=== PATIENT | male | born 2000 | race Caucasian/White ===

== ENCOUNTER 2021-10-20 13:52 | Emergency (ER) | payer BC, SELFPAY ==
[2021-10-20] VITALS (8 sets, daily range): BP systolic 111–127; BP diastolic 72–94; PULSE 101–113; RESP 10–18; TEMP 36.9; O2SAT 94–100
--- NOTE | ~2021-10-20 | XR_ITS ---
EXAMINATION: XR chest 1V portable INDICATION: Shortness of breath and wheezing TECHNIQUE: Portable AP chest at 1554 hours COMPARISON: None available FINDINGS: The lungs are free of acute opacities. There is no pleural effusion or pneumothorax. The ca rdiomediastinal silhouette is normal. Healed right-sided rib fractures are noted. IMPRESSION: 1. No acute cardiopulmonary abnormality. Reviewed, dictated and finalized at location [facility]. [employer]
--- NOTE | 2021-10-20 15:45 | ECG_ITS ---
Measurements Intervals [place] Rate: 116 P: 81 AK: 113 QRS: 91 QRSD: 82 T: 54 QT: 322 QTc: 448 Interpretive Statements SINUS TACHYCARDIA WITH SHORT AK INTERVAL RIGHT AXIS DEVIATION BORDERLINE ST-T WAVE ABNORMALITY- INFERIOR LEADS BASELINE ARTIFACT- I, II, III, AVR, AVL, AVF, V1-V6 ABNORMAL ECG Electronically Signed On 10-20-2021 17:07:51 [employer] by Jim Marr D.O.
[2021-10-20] MEDS: ALBUTEROL SULFATE NEB 2.5 MG/0.5 ML INH 5 MG INHALATION ×2 (16:00→19:50)
[2021-10-20] MEDS: IPRATROPIUM BR 0.02% INH SOLN 0.5 MG/2.5 ML VIAL INHALATION ×2 (16:00→19:50)
--- NOTE | 2021-10-20 16:00 | ED.GENADULT ---
HPI - General Adult General Chief complaint: Anxiety Stated complaint: anxiety Time Seen by Provider: 10/20/21 15:08 Source: patient, family (father) and RN notes reviewed Mode of arrival: ambulatory Limitations: no limitations History of Present Illness HPI narrative: This is a 20 year old male with history of anxiety and reactive airway disease who presents for evaluation of panic attacks and wheezing. Patient reports he has severe anxiety and he is on multiple medications. Over the past 48 hours, he states he is having panic attacks, and afterwards he is wheezing and short of breath. He reports his wheezing has not resolved. He reports having episodes like this before and he had to go to hospital for breathing treatments. He has mild dry cough. He denies chest pain, nausea, vomiting, fever, runny nose or congestion. He also denies sick contacts. He has been using his albuterol inhaler without relief of his symptoms. His father also notices that patient is feeling fatigue even though he has been sleeping alot over past 48 hours. Related Data Allergies Allergy/AdvReac Type Severity Reaction Status Date / Time amoxicillin Allergy Swelling Verified 10/20/21 15:27 of Lip/Tongue/Throat Review of Systems Review of Systems: All systems reviewed & are unremarkable except as noted in HPI and below PMFSH Past Medical History Medical History (Updated 10/20/21 @ 20:33 by Maryann Cottrell MD) Anxiety Reactive airway disease Surgical History Surgical History (Updated 10/20/21 @ 16:08 by Maryann Cottrell MD) No pertinent past surgical history Social History Social History (Updated 10/20/21 @ 16:09 by Maryann Cottrell MD) Smoking status: Never smoker Alcohol intake: never Substance use: never Substance use type: does not use Exam Const: General: no acute distress and alert Nutritional Appearance: thin Orientation/consciousness: patient oriented x3 Eyes: Pupils: Equal, round and reactive pupils present EOM: EOMs intact bilaterally Chest: Chest palpation & inspection: normal inspection of the chest Resp: Effort & Inspection: normal respiratory effort, no retractions and not tachypneic Auscultation: wheezes expiratory wheezes and throughout Other: able to speak in complete sentences Cardio: Rate: tachycardic Rhythm: regular rhythm Heart sounds: no murmurs GI: GI Palp: Yes Soft to palpation, No Tenderness to palpation present (GI) and No Guarding due to palpation present (GI) Auscultation: normal bowel sounds Back/Spine/Pelvis: Back: no CVA tenderness Skin: General skin exam: normal color Rashes: no rashes Neuro: General: patient oriented x3, moves all extremities and CN's II-XI intact bilaterally Course Reevaluation(s) Reevaluation #1: Patient presented with wheezing. He asked for nebulizer. He is having wheezing but he denies shortness of breath and he is able to talk in complete sentences. I ambulated patient down hallway and he was able to walk without shortness of breath and maintain oxygen saturation 94% on room air. I offered observation for patient over night. He states he is comfortable with discharge and will return immediately if he worsens. His father is at bedside. I Discussed discharge medication as plan. Date: 10/20/21 Time: 20:29 Vital Signs Vital signs: Vital Signs Temperature 98.4 F 10/20/21 13:59 Pulse Rate 113 H 10/20/21 13:59 Respiratory Rate 18 10/20/21 13:59 Blood Pressure 116/88 10/20/21 13:59 Pulse Oximetry 96 10/20/21 13:59 Temperature 98.4 F 10/20/21 13:59 Pulse Rate 113 H 10/20/21 21:33 Respiratory Rate 16 10/20/21 21:33 Blood Pressure 111/72 10/20/21 21:33 Pulse Oximetry 97 10/20/21 21:33 Medical Decision Making Vital Signs Vital Signs: Vital Signs Temperature 98.4 F 10/20/21 13:59 Pulse Rate 113 H 10/20/21 13:59 Respiratory Rate 18 10/20/21 13:59 Blood Pressure 116/88 10/20/21
[2021-10-20] MEDS: predniSONE 20 MG TABLET 40 MG PO (16:35)
[2021-10-20] MEDS: SODIUM CHLORIDE 0.9% IV 1,000 ML 999 ML IV CONT (16:36)
[2021-10-20 16:42] LABS: Basophils Absolute Auto 0.1 K/mm3 (0.0-0.1); Basophils Percent Auto 0.9 % (0.2-1.2); Eosinophils Absolute Auto 0.5 K/mm3 (0-0.3); Eosinophils Percent Auto 5.7 % (0-4.4); Hematocrit 49.5 % (42.0-52.0); Hemoglobin 16.4 g/dL (14.0-18.0); Immature Granulocyte Absolute 0.02 K/mm3 (0.00-0.031); Immature Granulocyte Percent A 0.2 % (0-0.5); Lymphocytes Absolute Auto 2.16 K/mm3 (0.9-3.2); Lymphocytes Percent Auto 23.9 % (18.3-44.2); Mean Corpuscular HGB Conc 33.1 g/dl (32-36); Mean Corpuscular Hemoglobin 29.2 pg (26-34); Mean Corpuscular Volume 88.2 fl (80-100); Mean Platelet Volume 10.4 fl (7.4-10.4); Monocytes Absolute Auto 1.1 K/mm3 (0.1-0.6); Monocytes Percent Auto 12.6 % (2.6-8.5); Neutrophils Absolute Auto 5.1 K/mm3 (1.3-6.7); Neutrophils Percent Auto 56.7 % (45.5-73.1); Platelet Count Result 241 k/mm3 (150-375); Red Blood Count 5.61 M/mm3 (4.6-6.20); Red Cell Distribution Width 13.2 % (11.5-14.5); White Blood Count 9.1 K/mm3 (4.5-10.0)
[2021-10-20 16:55] LABS: Alanine Aminotransferase 23 U/L (4-50); Alkaline Phosphatase 86 U/L (38-126); Anion Gap 12 mmol/L (8-16); Aspartate Amino Transferase 32 U/L (17-59); Bilirubin,Total 2.9 mg/dL (0.2-1.3); Blood Urea Nitrogen 11 mg/dL (9-20); Calcium 10.4 mg/dL (8.4-10.2); Carbon Dioxide 30 mmol/L (22-30); Chloride 98 mmol/L (98-107); Estimated CRCL calculation 92 ml/min; Estimated Glomerular Filt Rate > 60; Glucose 104 mg/dL (65-110); Lactic Acid Reflex 1.1 mmol/L (0.7-2.1); Magnesium 1.8 mg/dL (1.6-2.3); Potassium 3.9 mmol/L (3.4-5.0); Sodium 140 mmol/L (137-145)
[2021-10-20 17:54] LABS: SARS-CoV-2 RNA PCR Negative
[2021-10-20] MEDS: ALBUTEROL SULFATE NEB 2.5 MG/0.5 ML INH 10 MG INHALATION (18:11)
[2021-10-20 18:19] LABS: Add Urine Microscopic? YES; Appearance Urine Clear (Clear); Bilirubin Urine Negative (Negative); Blood Urine Negative (Negative); Color Urine Yellow (Yellow); Glucose Urine UA Negative (Negative); Ketones Urine Trace mg/dL (Negative); Leukocyte Esterase Ur Negative LEU/UL (Negative); Mucus Urine Rare /lpf; Nitrate Urine Negative (Negative); Protein Urine Negative (Negative); RBC Urine 0-2 /hpf (0-2); Specific Grav Ur 1.015 (1.001-1.035); WBC Urine 0-3 /hpf
[2021-10-20 18:31] LABS: Amphetamine Screen Urine Negative (Negative); Barbiturate Screen Urine Negative (Negative); Benzodiazepines Screen Urine Positive (Negative); Cannabinoid Screen Urine Positive (Negative); Cocaine Screen Urine Negative (Negative); Methadone Screen Urine Negative (Negative); Opiate Screen Urine Negative (Negative); Phencyclidine Screen Urine Negative (Negative)
== END 2021-10-20 21:33 | disposition home or self-care (01) ==
PROVIDERS: Emergency Provider General Practice
DX: J20.9 Acute bronchitis, unspecified (principal); Z20.822 Contact with and (suspected) exposure to COVID-19; J45.909 Unspecified asthma, uncomplicated; F41.9 Anxiety disorder, unspecified
CPT/HCPCS: 36415; 71045; 80053; 80307; 81001; 83605; 83735; 84443; 85025; 87804; 93005; 94640; 96360; 99284; C9803; J7030; J7512; U0003; U0005